=== PATIENT | female | born 1985 | race African-American/Black ===

== ENCOUNTER 2018-08-05 18:28 | Emergency (ER) | payer OTHER ==
[~2018-08-05] VITALS: Ht 167.6 cm; Wt 113.0 kg
[2018-08-05 19:13] VITALS: BP 146/100
== END 2018-08-05 23:27 | disposition left against medical advice (07) ==
LOC: ER 18:28
DX: L02.416 Cutaneous abscess of left lower limb (principal); Z53.21 Procedure and treatment not carried out due to patient leaving prior to being seen by health care provider
CPT/HCPCS: J7030

== ENCOUNTER 2019-09-10 02:57 | Emergency (ER) | payer OTHER ==
[~2019-09-10] VITALS: Ht 157.5 cm; Wt 101.0 kg
[2019-09-10 03:31] VITALS: BP 193/115
== END 2019-09-10 04:51 | disposition left against medical advice (07) ==
LOC: ER 02:57
DX: Z53.21 Procedure and treatment not carried out due to patient leaving prior to being seen by health care provider (principal)

== ENCOUNTER 2024-12-23 03:40 | Emergency (ER) | payer MEDICAID ==
[~2024-12-23] VITALS: Ht 157.5 cm; Wt 103.0 kg
[2024-12-23 03:52] VITALS: O2SAT 98
[2024-12-23 03:53] VITALS: BP 183/116; TEMP 37.2
[2024-12-23 06:39] VITALS: TEMP 98.9
[2024-12-23] MEDS: ACETAMINOPHEN 325MG TABLET PO ONE (06:39)
[2024-12-23] MEDS: IPRATROPIUM/ALBUTEROL 0.5-3(2.5)MG/3ML NEB HHN ONE (07:28)
[2024-12-23 07:40] VITALS: PULSE 68; RESP 14; O2SAT 98
[2024-12-23] MEDS ORDERED: ALBU18HF2 IH (07:59)
[2024-12-23] MEDS ORDERED: P50 MT (07:59)
[2024-12-23] MEDS ORDERED: BECL10.6 INH (07:59)
[2024-12-23] MEDS: PREDNISONE 20MG TABLET PO ONE (08:32)
== END 2024-12-23 08:35 | disposition home or self-care (01) ==
LOC: ER 03:52
DX: J45.901 Unspecified asthma with (acute) exacerbation (principal); I10 Essential (primary) hypertension; Z88.1 Allergy status to other antibiotic agents; Z88.2 Allergy status to sulfonamides; Z90.49 Acquired absence of other specified parts of digestive tract
CPT/HCPCS: 71045; 94640; 99283; Z7610 ×3